=== PATIENT | male | born 1965 | race Caucasian/White ===

== ENCOUNTER 2020-02-23 16:41 | Emergency (ER) | payer OTHER ==
[~2020-02-23] VITALS: Ht 167.6 cm; Wt 77.3 kg
[2020-02-23] MEDS ORDERED: ACET-2865 PO (17:10)
[2020-02-23] MEDS ORDERED: KETOROLAC TROMETHAMINE 30 MG/ML VIAL IM ONE (22:45)
[2020-02-23] MEDS ORDERED: CYCLOBENZAPRINE HCL 10 MG TABLET PO ONE (22:45)
[2020-02-23] MEDS ORDERED: KETOROLAC TROMETHAMINE 60 MG/2 ML VIAL IM ONE (22:45)
[2020-02-24 01:21] VITALS: BP 148/84
== END 2020-02-24 01:23 | disposition home or self-care (01) ==
LOC: EMS 16:41
DX: M54.32 Sciatica, left side (principal)
CPT/HCPCS: 96372; 99283; J1885

== ENCOUNTER 2021-04-25 19:54 | Emergency (ER) | payer OTHER ==
[~2021-04-25] VITALS: Ht 167.6 cm; Wt 72.7 kg
[~2021-04-25 19:54] MED LIST: ACET-2247 PO
[2021-04-25 20:27] VITALS: BP 118/75
== END 2021-04-26 05:24 | disposition left against medical advice (07) ==
LOC: EMS 19:59
DX: M54.2 Cervicalgia (principal); Z53.21 Procedure and treatment not carried out due to patient leaving prior to being seen by health care provider
CPT/HCPCS: 72125